=== PATIENT | male | born 1965 | race Caucasian/White ===

== ENCOUNTER → 2020-10-12 12:05 | Outpatient (BNVA) | payer BC, SELFPAY | PROVIDERS: Visit Provider Surgery | DX: Z20.822 Contact with and (suspected) exposure to COVID-19 (principal) | CPT/HCPCS: 87635 ==

== ENCOUNTER 2020-10-16 06:43 | Day surgery (SDC) | payer BC, SELFPAY ==
[2020-10-13 17:25] VITALS: BMI 32.3
[2020-10-16] VITALS (7 sets, daily range): BP systolic 110–150; BP diastolic 73–97; PULSE 72–85; RESP 14–18; TEMP 36.4–36.8; O2SAT 93–98
[2020-10-16] MEDS: acetaminophen 1,000 MG/100 ML PIGGYBACK 400 MG IV (07:30)
[2020-10-16] MEDS: sodium chloride 0.9% 1,000 ML 30 ML IV (07:30)
--- NOTE | 2020-10-16 08:35 | ANES.PREANE2 ---
Pre-Anesthetic Assessment Pre-Anesthetic Assessment: Height/Weight: Height 1.75 m Weight 99.337 kg Temp Pulse Resp BP Pulse Ox 98.0 F 72 18 150/97 95 10/16/20 07:04 10/16/20 07:04 10/16/20 07:04 10/16/20 07:04 10/16/20 07:04 Preop Diagnosis: Complicated hemorrhoid Proposed Procedure: Operation Date: 10/16/20 08:15 Proposed Procedures p Colonoscopy [id number] z12.11 k64.8(Not Applicable) - Arben Siddiqi MD s Exam Under Anesthesia(Not Applicable) - Arben Siddiqi MD s Hemorroidectomy(Not Applicable) - Arben Siddiqi MD Was Beta Kenrick taken within 24 hours: N/A Was Clonidine taken within 24 hours: N/A Last intake: Intake Last Liquid Date 10/15/20 Last Liquid Time 21:00 Last Solid Date 10/14/20 Last Solid Time 08:00 Social: Social History: No alcohol and No tobacco Exam: Pre-Anes Outpt Exam: alert, oriented x 3, clear to auscultation bilaterally and regular rate & rhythm Airway: Submandibular: WNL Cervical ROM: WNL MP: 2 Dentition: Full CV/HEM: CV/HEM: HTN Anesthetic Plan: ASA status: 2 Anesthesia: General Risk of > 500 ml blood loss (7ml/kg in children): No PFSH Anesthesia PFSH: Family History Other CAD (coronary artery disease) Cancer Diabetes Hypertension Stroke Denies family history of Dementia Psychiatric illness Chronic kidney disease (CKD) Lung disease Social History Smoking and tobacco status: never smoked Second hand smoke exposure: No Alcohol intake: current Alcohol intake frequency: holidays/special occasions only Lives independently: Yes Data Anesthesia Cardiac Studies: No Data to Display
--- NOTE | 2020-10-16 08:40 | W.PM.OPSUD ---
Surgery/Procedure H&P Update DATE OF PROCEDURE: October 16, 2020 DATE H&P PERFORMED: 09/25/20 H&P UPDATE INFORMATION: I have reviewed H&P completed within last 30 days, I have examined patient prior to procedure and No changes to prior documentation PREOP DIAGNOSIS: Complicated hemorrhoid PRIMARY INDICATION FOR PROCEDURE: The same PLANNED PROCEDURE: Operation Date: 10/16/20 08:15 Proposed Procedures p Colonoscopy [id number] z12.11 k64.8(Not Applicable) - Arben Siddiqi MD s Exam Under Anesthesia(Not Applicable) - Arben Siddiqi MD s Hemorroidectomy(Not Applicable) - Arben Siddiqi MD
[2020-10-16] MEDS: piperacillin-tazobactam 3.375 GM in sodium chloride 0.9% (plus) 50 ML IV (08:56)
--- NOTE | 2020-10-16 09:40 | PM.OP ---
Operative Report Date of procedure: October 16, 2020 Pre-op Diagnosis: Complicated hemorrhoid Post-op diagnosis: other Post-op Diagnosis: Normal colonoscopy and right lower lateral hemorrhoid Procedure Done: Colonoscopy with examination under anesthesia and hemorrhoidectomy Implants: Surgicel/Xeroform for anal packing Specimens removed/disposition: Right lower lateral hemorrhoid Surgeon: Arben Siddiqi Express Manager: histologic technician Elma and circulating nurse Dedra Anesthesia: MAC (Marissa Leroy) Estimated blood loss (mL): 10 Condition: stable Disposition: same day Brief History: Symptomatic hemorrhoids Procedure: Patient was identified in the holding area, was taken to the OR placed first in supine position,IV antibiotics were given with induction time-out was done verifying the patient's name, date of , and procedure, all were in agreement. General intravenous anesthetic was administered by the anesthesia provider, patient was placed in left lateral position SCDs were on and functioning. All pressure points were padded. Perianal examination showed right lower lateral external hemorrhoid,otherwise no evidence of clinically palpable anal masses. Following that a digital rectal examination was done, the colonoscope was then introduced via the anus under direct visualization, all the way to the proximal to the cecum, prep of the colon was appropriate, otherwise there were no polyps identified or masses or diverticular disease or strictures, the scope was then retrieved back, gas was deflated on the way out.Retroflex was done at the end showing showed no evidence of internal hemorrhoids, time to retrieve the scope from the cecum to the anus exceeded 6 minutes Prep and drape of the perineum was done under the usual sterile technique Injection of 20 mL of Exparel to block the pudendal nerve on the right side,guiding point was the ischial spine on each side located by the examining finger A lubricated self-retaining proctoscope was inserted, evidence of right lower lateral external hemorrhoid below the dentate line Started by introducing a wet sponge to prevent any residual colon prep from contaminating the site of the excision, and under direct visualization I started dissecting the right lower lateral right tissues after application of hemostats,dissection was carried by using the harmonic scalpel, excised tissues were sent for permanent pathology, followed by running 2-0 chromic catgut. Hemostasis was achieved, irrigation was done, sponge was retrieved. Followed by irrigation.A piece of Surgicel /piece of Xeroform impregnated with lubricant jelly was placed in the anal canal, attached to 2-0 silk suture, to help retrieving it by the patient later on. ABDs were applied followed by surgical pants. Patient tolerated the procedure well and was taken to the recovery area in stable condition.
[2020-10-16] MEDS: fentaNYL 50 mcg/mL INJ 2mL IVP ×2 (09:48→09:53)
[2020-10-16] MEDS: ondansetron 4 MG Tablet PO (10:29)
[2020-10-16] MEDS: HYDROcodone-acetaminophen 5-325 mg Tablet 1 TAB PO (10:29)
--- NOTE | 2020-10-16 12:52 | ANE.PACU2 ---
Inpatient post-anesthesia follow up: Airway intact: Yes Vital signs: Temperature 98.2 F Pulse Rate 84 Respiratory Rate 18 Blood Pressure 122/78 Pulse Oximetry 98 Oxygen Delivery Me thod Room Air Oxygen Flow Rate Fraction of Inspir ed Oxygen Hydration adequate: Yes Nausea and vomiting: No Pain level: 2 Mental status: Baseline
== END 2020-10-16 10:50 | disposition home or self-care (01) ==
PROVIDERS: Visit Provider Surgery
PROC: 0DJD8ZZ Inspection of Lower Intestinal Tract, Via Natural or Artificial Opening Endoscopic (ICD-10-PCS; CPT 45378; principal; 2020-10-16 08:15)
PROC: (CPT 45378; 2020-10-16 08:15)
PROC: (CPT 45378; 2020-10-16 08:15)
DX: K64.4 Residual hemorrhoidal skin tags (principal); I10 Essential (primary) hypertension; Z82.49 Family history of ischemic heart disease and other diseases of the circulatory system; Z83.3 Family history of diabetes mellitus; Z82.3 Family history of stroke
CPT/HCPCS: 45378; 46999; 88304; 96374; C9290; J2543; J2704; J3010; J3490; J7030; Q0162

== ENCOUNTER 2021-01-27 05:59 | Emergency (ER) | payer OTHER, SELFPAY ==
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
[2021-01-27 06:03] VITALS: BP 154/100; PULSE 74; RESP 20; TEMP 36.7; O2SAT 96; BMI 32.3
--- NOTE | 2021-01-27 06:20 | ECG_ITS ---
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 Measurements Intervals [place] Rate: 68 P: 44 FL: 154 QRS: -34 QRSD: 114 T: 6 QT: 406 QTc: 435 Interpretive Statements SINUS RHYTHM LEFT AXIS DEVIATION [QRS AXIS < -30] SEPTAL MYOCARDIAL INFARCTION , PROBABLY OLD [40+ ms Q WAVE IN V1/V2] No previous ECG available for comparison Electronically Signed On 01-27-2021 22:01:27 VEHICLE CONTROLS ENGINEER by Linda Mccoy M.D. [id number]
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
[2021-01-27 06:37] LABS: ABG PH Result 7.41 (7.35-7.45); Alveolar-Arterial Oxygen Gradi 1.2 mmHg (5-10); Arterial Blood Gas Hematocrit 45.4 % (42-52); Base Excess ABG -0.1 mmol/L (-2.0-2.0); Blood Gas Allen Test Pos; Blood Gas Sample Type Arterial; Carboxyhemoglobin 1.1 %THgb (0.4-20.1); HCO3 ABG 24.3 mmol/L (22-26); HGB O2 Sat 96.5 % (95-100); Ionized Calcium Level - ABG 1.2 mmol/L (1.1-1.4); Methemoglobin 1.1 % (0.4-1.5); Oxygen Saturation ABG 98.5; PO2 ABG 93.6 mmHg (80.0-100.0); Potassium Level - ABG 3.1 mmol/L (3.5-5.0); Total Hemoglobin 14.8 g/dL (14-18)
[2021-01-27 06:38] LABS: Blood Gas Sample Site Radial, left
[2021-01-27 06:44] VITALS: BP 151/90; PULSE 71; RESP 22; O2SAT 95
--- NOTE | 2021-01-27 06:46 | PC.NURSE ---
Received report assumed care. No changes noted. Continue to monitor
[2021-01-27 07:11] VITALS: BP 133/78; PULSE 66; RESP 20; O2SAT 96
[2021-01-27] MEDS: ipratropium-albuterol 3 mL Neb INHALATION (07:15)
[2021-01-27 07:16] VITALS: PULSE 75; RESP 20; O2SAT 95
[2021-01-27] MEDS: potassium chloride ER 20 mEq Tablet 40 MEQ PO (07:18)
[2021-01-27 07:34] VITALS: BP 133/78; PULSE 75; RESP 20; O2SAT 95
== END 2021-01-27 07:40 | disposition home or self-care (01) ==
PROVIDERS: Emergency Provider Emergency Medicine
DX: T59.811A Toxic effect of smoke, accidental (unintentional), initial encounter (principal); R05.9 Cough, unspecified
CPT/HCPCS: 36600; 71045; 80051; 82330; 82805; 93005; 94640; 99283